=== PATIENT | male | born 1995 | race Two or more races ===

== ENCOUNTER 2017-04-26 19:00 | Emergency (ER) | payer OTHER ==
[2017-04-26 19:15] VITALS: TEMP 97.3
[2017-04-26] MEDS ORDERED: ONDANSETRON 4 MG/2 ML VIAL IVP ONE (19:29)
[2017-04-26] MEDS ORDERED: NS 1,000 ML IV ONE (19:29)
[2017-04-26] MEDS ORDERED: LORazepam 2 MG/ML INJ IVP ONE (19:29)
[2017-04-26] MEDS ORDERED: PANTOPRAZOLE SODIUM 40 MG VIAL IVP ONE (19:29)
[2017-04-26 19:34] LABS: PLATELET COUNT 259 10^3/uL (150-400)
--- NOTE | 2017-04-26 19:46 | EDPHY ---
H & P Time Seen by Provider: 04/26/17 19:19 HPI/ROS: CHIEF COMPLAINT: Abdominal pain, vomiting HISTORY OF PRESENT ILLNESS: 21-year-old male presents to the emergency department with multiple episodes of vomiting and diffuse abdominal pain that began this morning. The patient states that he drank heavily last night and is now feeling nauseous and has vomited multiple times. He is also describing diffuse abdominal pain. He denies back pain. No diarrhea. No chest pain or difficulty breathing. No fevers or chills. No reported trauma. Denies any other substance abuse. REVIEW OF SYSTEMS: Constitutional: No fever, no chills. Eyes: No double or blurry vision. ENT: No sore throat. Respiratory: No cough, no shortness of breath. Cardiac: No chest pain. Gastrointestinal: Abdominal pain, vomiting. No diarrhea. Genitourinary: No dysuria. Musculoskeletal: No neck or back pain. Skin: No rashes. Neurological: No headache. Past Medical/Surgical History: Negative Social History: Single Smoking Status: Never smoked Physical Exam: General Appearance: Alert, no distress. Afebrile. Eyes: Pupils equal and round. Extraocular motions are all intact. ENT: Mouth: Mucous membranes moist. Respiratory: No wheezing, rhonchi, or rales, lungs are clear to auscultation. Cardiovascular: Regular rate and rhythm. Gastrointestinal: Abdomen is soft. He has tenderness with palpation especially the epigastric area as well as in the periumbilical area. There is no rebound, guarding or masses noted. No CVA tenderness bilaterally. Neurological: Alert and oriented x 3, cranial nerves II through XII grossly intact Skin: Warm and dry, no rashes. Musculoskeletal: Nontender to palpate along the cervical, thoracic or lumbar spine. Neck is supple. Extremities: Full range of motion and no peripheral edema. Psychiatric: Patient is oriented X 3, there is no agitation. Constitutional: Initial Vital Signs Temperature (C) 36.3 C 04/26/17 19:12 Heart Rate 106 H 04/26/17 19:12 Respiratory Rate 22 H 04/26/17 19:12 Blood Pressure 132/63 H 04/26/17 19:12 O2 Sat (%) 97 04/26/17 19:12 O2 Delivery Mode Room Air Allergies/Adverse Reactions: No Known Allergies Allergy (Verified 04/26/17 19:56) Medical Decision Making ED Course/Re-evaluation: 21-year-old male presents to the emergency department epigastric abdominal pain and vomiting. The patient has no pain with palpation over McBurney's point. The patient has mildly elevated white blood cell count. His electrolytes are otherwise unremarkable. Normal lipase and normal liver function tests. Patient received IV normal saline, IV Ativan, IV Zofran. He was feeling much better. He was also on IV Protonix. Patient was also given GI cocktail. He was tolerating p.o. fluids and is comfortable being discharged home. Differential Diagnosis: Including but not limited to gastritis, gastroenteritis, peptic ulcer disease, pancreatitis, GERD, cholecystitis, cholelithiasis, acute appendicitis - Data Points Laboratory Results: Laboratory Results 04/26/17 19:27 04/26/17 19:27 04/26/17 04/26/17 19: 19:27 WBC 13.51 10^3/uL H 10^3/uL (3.80-9.50) RBC 5.57 10^6/uL 10^6/uL (4.40-6.38) Hgb 16.8 g/dL g/dL (13.7-17.5) Hct 46.4 % % (40.0-51.0) MCV 83.3 fL fL (81.5-99.8) MCH 30.2 pg pg (27.9-34.1) MCHC 36.2 g/dL g/dL (32.4-36.7) RDW 12.4 % % (11.5-15.2) Plt Count 259 10^3/uL 10^3/uL (150-400) MPV 10.1 fL fL (8.7-11.7) Neut % (Auto) 91.4 % H % (39.3-74.2) Lymph % (Auto) 4.3 % L % (15.0-45.0) [place] % (Auto) 3.8 % L % (4.5-13.0) Eos % (Auto) 0.0 % L % (0.6-7.6) Baso % (Auto) 0.2 % L % (0.3-1.7) Nucleat RBC Rel Count 0.0 % % (0.0-0.2) Absolute Neuts (auto) 12.35 10^3/uL H 10^3/uL (1.70-6.50) Absolute Lymphs (auto) 0.58 10^3/uL L 10^3/uL (1.00-3.00) Absolute Monos (auto) 0.51 10^3/uL 10^3/uL (0.30-0.80) Absolute Eos (auto) 0.00 10^3/uL L 10^3/uL (0.03-0.40) Absolute Basos (auto) 0.03 10^3/uL 10^3/uL (0.02-0.10) Absolute Nucleated RBC 0.00 10^3/uL 10^3/uL (0-0.01) Immature Gran % 0.3 % % (0.0-1.1) Immature Gran # 0.04 10^3/uL 10^3/uL (0.00-0.10) Sodium 147 mEq/L H mEq/L (134-144) Potassium 4.3 mEq/L mEq/L (3.5-5.2) Chloride 105 mEq/L mEq/L (97-110) Carbon Dioxide 26 mEq/l mEq/l (22-31) Anion Gap 16 mEq/L mEq/L (8-16) BUN 17 mg/dL mg/dL (7-23) Creatinine 0.7 mg/dL mg/dL (0.7-1.3) Estimated GFR > 60 Glucose 110 mg/dL H mg/dL (70-100) Calcium 10.4 mg/dL mg/dL (8.5-10.4) Total Bilirubin 1.1 mg/dL mg/dL (0.1-1.4) Conjugated Bilirubin 0.3 mg/dL mg/dL (0.0-0.5) Unconjugated Bilirubin 0.8 mg/dL mg/dL (0.0-1.1) AST 37 IU/L IU/L (17-59) ALT 47 IU/L IU/L (21-72) Alkaline Phosphatase 74 IU/L IU/L (38-126) Total Protein 9.0 g/dL H g/dL (6.3-8.2) Albumin 5.4 g/dL H g/dL (3.5-5.0) Lipase 38 IU/L IU/L (23-300) Medications Given: Discontinued Medications Al Hydroxide/Mg Hydroxide (Maalox Susp) 30 ml PO ONCE ONE Stop: 04/26/17 21:13 Last Admin: 04/26/17 21:15 Dose: 30 ml Hyoscyamine Sulfate (Levsin, Hyomax-Sl) 0.25 mg PO ONCE ONE Stop: 04/26/17 21:13 Last Admin: 04/26/17 21:15 Dose: 0.25 mg Sodium Chloride (Ns) 1,000 mls @ 0 mls/hr IV ONCE ONE PRN Reason: Wide Open Stop: 04/26/17 19:30 Last Admin: 04/26/17 19:55 Dose: 1,000 mls Lidocaine (Lidocaine 2% Viscous) 15 ml PO ONCE ONE Stop: 04/26/17 21:13 Last Admin: 04/26/17 21:15 Dose: 15 ml Lorazepam (Ativan Injection) 0.5 mg IVP EDNOW ONE Stop: 04/26/17 19:30 Last Admin: 04/26/17 19:55 Dose: 0.5 mg Ondansetron HCl (Zofran) 4 mg IVP EDNOW ONE Stop: 04/26/17 19:30 Last Admin: 04/26/17 19:56 Dose: 4 mg Ondansetron HCl (Zofran Odt 4 Mg Prepack#2) 1 btl TAKEHOME EDNOW ONE Stop: 04/26/17 20:51 Last Admin: 04/26/17 21:09 Dose: 1 btl Pantoprazole Sodium (Protonix) 40 mg IVP EDNOW ONE Stop: 04/26/17 19:30 Last Admin: 04/26/17 19:55 Dose: 40 mg Departure - Departure Disposition: Home, Routine, Self-Care Clinical Impression: Abdominal pain Qualifiers: Abdominal location: epigastric Qualified Code(s): R10.13 - Epigastric pain Vomiting Qualifiers: Vomiting type: unspecified Vomiting Intractability: non-intractable Nausea presence: with nausea Qualified Code(s): R11.2 - Nausea with vomiting, unspecified Condition: Good Instructions: Acute Nausea and Vomiting (ED), Abdominal Pain (ED) Additional Instructions: Abdominal Pain: Return to the Emergency Department immediately for increasing pain, fever, vomiting, or if not completely better in 8-12 hours. Clear liquids and slowly advance diet as tolerated. Referrals: Corie Henderson MD [[facility] [place] Primary Care Provider] - 2-3 days, if not improved (Primary care provider production checker)
[2017-04-26 20:01] VITALS: RESP 16
[2017-04-26] MEDS ORDERED: ONDANSETRON 4MG PREPACK#2 BTL TAKEHOME ONE (20:50)
[2017-04-26] MEDS ORDERED: HYOSCYAMINE SULFATE 0.125 MG TAB PO ONE (21:12)
[2017-04-26] MEDS ORDERED: MAG HYDROX/AL HYDROX/SIMETH 30 ML UDCUP PO ONE (21:12)
[2017-04-26] MEDS ORDERED: LIDOCAINE 2% VISCOUS 15 ML UDCUP PO ONE (21:12)
[2017-04-26 22:49] VITALS: BP 109/60; PULSE 98; O2SAT 97
== END 2017-04-26 22:50 | disposition home or self-care (01) ==
DX: R10.13 Epigastric pain (principal); R11.2 Nausea with vomiting, unspecified
CPT/HCPCS: 96374; J2060; J2405